=== PATIENT | male | born 2000 | race American Indian/Alaskan Native ===

== ENCOUNTER 2021-07-17 15:11 | Emergency (ER) | payer SELFPAY ==
--- NOTE | 2021-07-17 17:25 | Emergency Department Report ---
ED Eye Problem HPI - General Chief complaint: Eye Problems Stated complaint: POSS PINK EYE Time Seen by Provider: 07/17/21 17:01 Source: patient Mode of arrival: Ambulatory Limitations: No Limitations - History of Present Illness Initial comments: 21-year-old -Maltese male presents to the emergency room for right eye irritation. Patient states that it itches but does not have any pain no blurred vision no photophobia no eye injury. chief complaint: eye redness Onset/Timin -: days(s) Onset Description: awoke with symptoms Location: right eye If Injury: none Eye Symptoms: itching, discharge Severity scale (0 -10): 3 - Related Data Patient Tetanus UTD: Yes Previous Rx's Medication Instructions Recorded Last Taken Type Erythromycin [Erythromycin Ophth 1 strip OD QID 10 Days #1 tube 07/17/21 Unknown Rx Oint] Allergies Allergy/AdvReac Type Severity Reaction Status Date / Time No Known Allergies Allergy Verified 07/17/21 16:47 ED Review of Systems ROS: Stated complaint: POSS PINK EYE Other details as noted in HPI Comment: All other systems reviewed and negative ED Past Medical Hx - Past Medical History Hx Asthma: Yes - Surgical History Additional Surgical History: left elbow and tricep surgery - Medications Home Medications: Home Medications Medication Instructions Recorded Confirmed Last Taken Type Erythromycin [Erythromycin Ophth 1 strip OD QID 10 Days #1 tube 07/17/21 Unknown Rx Oint] ED Physical Exam - General Limitations: No Limitations General appearance: alert, in no apparent distress - Head Head exam: Present: atraumatic, normocephalic - Eye Eye exam: Present: PERRL, EOMI, conjunctival injection - ENT ENT exam: Present: mucous membranes moist - Neck Neck exam: Present: normal inspection, full ROM - Respiratory Respiratory exam: Present: normal lung sounds bilaterally. Absent: respiratory distress - Cardiovascular Cardiovascular Exam: Present: regular rate, normal rhythm. Absent: systolic murmur, diastolic murmur, rubs, gallop - Back Exam Back exam: Present: normal inspection, full ROM - Neurological Exam Neurological exam: Present: alert, oriented X3, normal gait - Psychiatric Psychiatric exam: Present: normal affect, normal mood - Skin Skin exam: Present: warm, dry, intact, normal color. Absent: rash ED Course Vital Signs 07/17/21 07/17/21 16:46 17:36 Temperature 97.4 F L 97.9 F Pulse Rate 83 78 Respiratory 16 16 Rate Blood Pressure 154/66 140/76 [Right] O2 Sat by Pulse 100 100 Oximetry ED Medical Decision Making - Medical Decision Making 21-year-old -Maltese male presents to the emergency room for right eye irritation. Patient states that it itches but does not have any pain no blurred vision no photophobia no eye injury. Patient be treated for conjunctivitis with erythromycin ophthalmic ointment to right eye 4 times daily for 10 days. Instructed to wash his before and after administration of medication. Critical care attestation.: If time is entered above; I have spent that time in minutes in the direct care of this critically ill patient, excluding procedure time. ED Disposition Clinical Impression: Conjunctivitis, right eye Disposition: 01 HOME / SELF CARE / HOMELESS Is pt being admited?: No Does the pt Need Aspirin: No Condition: Stable Additional Instructions: Please use ophthalmic antibiotic ointment to right eye. Prescriptions: Erythromycin [Erythromycin Ophth Oint] 1 strip OD QID 10 Days #1 tube Referrals: DARION MAX DO [Staff Physician] - 3-5 Days Forms: Work/School Release Form(ED) Time of Disposition: 17:24
[2021-07-17 17:37] VITALS: BP 140/76
== END 2021-07-17 17:45 | disposition home or self-care (01) ==
LOC: ED 15:11
DX: H10.9 Unspecified conjunctivitis (principal); J45.909 Unspecified asthma, uncomplicated
CPT/HCPCS: 99282

== ENCOUNTER 2021-07-22 15:18 | Emergency (ER) | payer SELFPAY ==
[2021-07-22 15:22] VITALS: BP 123/65
--- NOTE | 2021-07-22 15:38 | Emergency Department Report ---
Chief Complaint: Eye Problems Stated Complaint: PINK EYE Time Seen by Provider: 07/22/21 15:24 - HPI History of Present Illness: 21 year old male presents to the ER today requesting medical clearance to go back to work. Patient was seen here on July 17 for conjunctivitis in his right eye and he was prescribed erythromycin eye ointment. He was to use it 4 times a day for 10 days. He is patient states that he try to go back to work today, but he states that his boss needed him to get medically cleared to come back. Patient states that his symptoms have much improved since using the ointment. He reports no additional symptoms at this time. - Exam Vital Signs: Vital Signs 07/22/21 15:21 Temperature 98.7 F Pulse Rate 82 Respiratory 15 Rate Blood Pressure 123/65 O2 Sat by Pulse 99 Oximetry MSE screening note: Focused history and physical exam performed. Due to findings the following was ordered: ED Disposition for MSE Clinical Impression: Encounter for medical screening examination, Hx of acute conjunctivitis Disposition: HOME / SELF CARE / HOMELESS Is pt being admited?: No Does the pt Need Aspirin: No Condition: Stable Instructions: Medical Screening Exam Additional Instructions: You can return to work Sunday as scheduled but I do recommend that you continue to use the ointment for the next 3 days and then you can stop. Follow-up with your PCP as needed. Return to the ER if your symptoms changes or worsens in any way. Referrals: MARCELO ROJAS MD [Staff Physician] - as needed Forms: Work/School Release Form(ED) Time of Disposition: 15:40 Print Language: ROMANIAN ED Review of Systems ROS: Stated complaint: PINK EYE Other details as noted in HPI Comment: All other systems reviewed and negative Eyes: eye pain (improving ), eye discharge (improving), other (eye redness - improving ) Respiratory: denies: cough, shortness of breath, wheezing Cardiovascular: denies: chest pain, palpitations Genitourinary: denies: urgency, dysuria, frequency, hematuria, discharge, testicular pain, testicular mass Musculoskeletal: denies: back pain, joint swelling, arthralgia Skin: denies: rash, lesions, change in color, change in hair/nails, pruritus Neurological: denies: headache, weakness, numbness, paresthesias, confusion, abnormal gait, vertigo Psychiatric: denies: anxiety, depression Hematological/Lymphatic: denies: easy bleeding, easy bruising ED Physical Exam - General Limitations: No Limitations General appearance: alert, in no apparent distress - Head Head exam: Present: atraumatic, normocephalic, normal inspection - Eye Eye exam: Present: normal appearance, PERRL, EOMI Pupils: Present: normal accommodation - ENT ENT exam: Present: normal exam, mucous membranes moist, TM's normal bilaterally - Neck Neck exam: Present: normal inspection, full ROM - Respiratory Respiratory exam: Absent: respiratory distress - Cardiovascular Cardiovascular Exam: Present: regular rate - Neurological Exam Neurological exam: Present: alert, oriented X3, CN II-XII intact, normal gait - Psychiatric Psychiatric exam: Present: normal affect, normal mood - Skin Skin exam: Present: intact
== END 2021-07-22 15:47 | disposition home or self-care (01) ==
LOC: ED 15:18
DX: H10.9 Unspecified conjunctivitis (principal)
CPT/HCPCS: 99281

== ENCOUNTER 2021-12-24 16:57 | Emergency (ER) | payer SELFPAY ==
[2021-12-24 17:24] VITALS: BP 121/89
--- NOTE | 2021-12-24 18:25 | Emergency Department Report ---
ED Asthma HPI - General Chief Complaint: Adult Asthma Stated Complaint: ASTHMA Time Seen by Provider: 12/24/21 18:06 Source: patient Mode of arrival: Ambulatory Limitations: No Limitations - History of Present Illness Initial Comments: 21-year-old male with history of asthma presents to the hospital complaining of increased coughing and wheezing spells with chest tightness. Patient feels that the pollen is exacerbating his asthma. He does not currently have an inhaler. Patient currently denies shortness of breath - Related Data Previous Rx's Medication Instructions Recorded Last Taken Type Erythromycin [Erythromycin Ophth 1 strip OD QID 10 Days #1 tube 07/17/21 Unknown Rx Oint] Albuterol Sulfate [Proventil Hfa] 2 puff IH Q4HR PRN #1 inh 12/24/21 Unknown Rx Allergies Allergy/AdvReac Type Severity Reaction Status Date / Time No Known Allergies Allergy Verified 12/24/21 17:25 ED Review of Systems ROS: Stated complaint: ASTHMA Other details as noted in HPI Comment: All other systems reviewed and negative ED Past Medical Hx - Past Medical History Previous Medical History?: Yes Hx Asthma: Yes - Surgical History Past Surgical History?: Yes Additional Surgical History: left elbow and tricep surgery - Social History Smoking Status: Never Smoker Substance Use Type: None - Medications Home Medications: Home Medications Medication Instructions Recorded Confirmed Last Taken Type Erythromycin [Erythromycin Ophth 1 strip OD QID 10 Days #1 tube 07/17/21 12/24/21 Unknown Rx Oint] Albuterol Sulfate [Proventil Hfa] 2 puff IH Q4HR PRN #1 inh 12/24/21 Unknown Rx ED Physical Exam - General Limitations: No Limitations - Other Other exam information: General: No acute distress Head: Atraumatic Eyes: normal appearance ENT: Moist mucous membranes Neck: Normal appearance, no midline tenderness Chest: Clear to auscultation bilaterally CV: Regular rate and rhythm Abdomen: Soft, normal bowel sounds, nontender, nondistended, no rebound or guarding Back: Normal inspection Extremity: Normal inspection, full range of motion Neuro: Alert O x 3, no facial asymmetry, speech clear, no gross motor sensory deficit Psych: Appropriate behavior Skin: No rash ED Course Vital Signs 12/24/21 12/24/21 17:02 17:22 Temperature 98.4 F 97.9 F Pulse Rate 81 79 Respiratory 20 16 Rate Blood Pressure 135/92 Blood Pressure 121/89 [Right] O2 Sat by Pulse 100 97 Oximetry ED Medical Decision Making - Medical Decision Making 21-year-old male with history of asthma reports increased exacerbations and chest tightness. He does not currently have an inhaler and is requesting a refill. Patient does not require a breathing treatment in the ED Critical Care Time: No Critical care attestation.: If time is entered above; I have spent that time in minutes in the direct care of this critically ill patient, excluding procedure time. ED Disposition Clinical Impression: Asthma, Medication refill Disposition: HOME / SELF CARE / HOMELESS Is pt being admited?: No Does the pt Need Aspirin: No Condition: Stable Instructions: Asthma (ED), Asthma, Adult Additional Instructions: Take the medication as prescribed. Follow-up with your doctor or doctor/clinic provided. Return if symptoms worsen as indicated by your discharge instr uctions. Prescriptions: Albuterol Sulfate [Proventil Hfa] 2 puff IH Q4HR PRN #1 inh PRN Reason: Wheezing Referrals: [facility] [Provider Group] - 3-5 Days Time of Disposition: 18:23
== END 2021-12-24 18:36 | disposition home or self-care (01) ==
LOC: ED 16:57
DX: J45.909 Unspecified asthma, uncomplicated (principal); Z76.0 Encounter for issue of repeat prescription
CPT/HCPCS: 99282

== ENCOUNTER 2022-03-12 03:28 | Emergency (ER) | payer BC ==
[2022-03-12] MEDS ORDERED: methylPREDNISolone Sod Succinate 125 MG/2 ML INJ IM ONE (05:16)
[2022-03-12] MEDS ORDERED: ALBUTEROL 2.5 MG/3 ML NEBU IH ONE (05:17)
[2022-03-12] MEDS ORDERED: IPRATROPIUM 0.02% NEBU 2.5 ML IH ONE (05:17)
--- NOTE | 2022-03-12 06:08 | XRay Report ---
CHEST 1 VIEW 03/12/2022 5:29 AM INDICATION / CLINICAL INFORMATION: dyspnea, cough, asthma. COMPARISON: None available. FINDINGS: SUPPORT DEVICES: None. HEART / MEDIASTINUM: No significant abnormality. LUNGS / PLEURA: No significant pulmonary or pleural abnormality. No pneumothorax. ADDITIONAL FINDINGS: No significant additional findings. IMPRESSION: No acute abnormality. Signer Name: Prem Serrano MD Signed: 03/12/2022 6:03 AM Workstation Name: [id number]
--- NOTE | 2022-03-12 06:20 | Emergency Department Report ---
ED Shortness of Breath HPI - General Chief Complaint: Adult Asthma Stated Complaint: ASTHMA Source: patient Mode of arrival: Ambulatory Limitations: No Limitations - History of Present Illness Initial Comments: Patient is a 22-year-old -Bh[place] male with a history of asthma presents to the ED with complaint of acute onset persistent shortness of breath, nasal and sinus congestion for the last 1 week. Patient states that he ran out of his albuterol inhaler about a month ago and has not used any. Patient states that he does not have any primary care physician and therefore has not been able to get any prescriptions for his albuterol inhaler. Patient states that his symptoms got worse in the last 8 hours such that he has not been able to sleep because of chest tightness, persistent dry cough and wheezing. Patient denies chest pain, dizziness, syncope, fever, chills, nausea and vomiting, abdominal pain, sore throat, hemoptysis, headache, diarrhea, or ear pain. MD Complaint: shortness of breath, cough, chest pain (Chest tightness), "asthma attack" -: Gradual, week(s) (1) Severity: severe Pain Scale: 7 Quality: dull, other (Tightness) Consistency: intermittent Improves With: bronchodilators Worsens With: lying flat, coughing Known History Of: asthma Context: recent URI, allergen exposure Associated Symptoms: denies other symptoms, chest pain (Chest tightness), cough Treatments Prior to Arrival: none - Related Data Home Oxygen Therapy: No Previous Rx's Medication Instructions Recorded Last Taken Type Erythromycin [Erythromycin Ophth 1 strip OD QID 10 Days #1 tube 07/17/21 Unknown Rx Oint] Albuterol Sulfate [Proventil Hfa] 2 puff IH Q4HR PRN #1 inh 03/12/22 Unknown Rx Benzonatate [Tessalon Perles] 100 mg PO Q8HR #30 cap 03/12/22 Unknown Rx Cetirizine HCl [ZyrTEC 10mg cap] 10 mg PO DAILY #30 cap 03/12/22 Unknown Rx Montelukast [Singulair] 10 mg PO QPM #30 tablet 03/12/22 Unknown Rx methylPREDNISolone [Medrol 4MG 4 mg PO DAILY #21 tab 03/12/22 Unknown Rx DOSEPAK (21 tabs)] Allergies Allergy/AdvReac Type Severity Reaction Status Date / Time No Known Allergies Allergy Verified 03/12/22 04:11 ED Review of Systems ROS: Stated complaint: ASTHMA Other details as noted in HPI Constitutional: denies: chills, fever Eyes: denies: eye pain, eye discharge, vision change ENT: congestion. denies: ear pain, throat pain Respiratory: cough, shortness of breath, wheezing Cardiovascular: chest pain (Chest tightness). denies: palpitations Endocrine: no symptoms reported Gastrointestinal: denies: abdominal pain, nausea, vomiting, diarrhea Genitourinary: denies: urgency, dysuria Musculoskeletal: denies: back pain, joint swelling, arthralgia Skin: denies: rash, lesions Neurological: denies: headache, weakness, paresthesias Psychiatric: denies: anxiety, depression Hematological/Lymphatic: denies: easy bleeding, easy bruising ED Past Medical Hx - Past Medical History Hx Asthma: Yes - Surgical History Additional Surgical History: left elbow and tricep surgery - Social History Smoking Status: Current Some Day Smoker - Medications Home Medications: Home Medications Medication Instructions Recorded Confirmed Last Taken Type Erythromycin [Erythromycin Ophth 1 strip OD QID 10 Days #1 tube 07/17/21 12/24/21 Unknown Rx Oint] Albuterol Sulfate [Proventil Hfa] 2 puff IH Q4HR PRN #1 inh 03/12/22 Unknown Rx Benzonatate [Tessalon Perles] 100 mg PO Q8HR #30 cap 03/12/22 Unknown Rx Cetirizine HCl [ZyrTEC 10mg cap] 10 mg PO DAILY #30 cap 03/12/22 Unknown Rx Montelukast [Singulair] 10 mg PO QPM #30 tablet 03/12/22 Unknown Rx methylPREDNISolone [Medrol 4MG 4 mg PO DAILY #21 tab 03/12/22 Unknown Rx DOSEPAK (21 tabs)] ED Physical Exam - General Limitations: No Limitations General appearance: alert, in no apparent distress - Head Head exam: Present: atraumatic, normocephalic, normal inspection - Eye Eye exam: Present: normal appearance, PERRL, EOMI Pupils: Present: normal accommodation - ENT ENT exam: Present: normal orophraynx, mucous membranes moist, TM's normal bilaterally, normal external ear exam, other (Grossly congested nasal passages) - Neck Neck exam: Present: normal inspection, full ROM. Absent: tenderness - Respiratory Respiratory exam: Present: wheezes (Diffuse coarse wheezes throughout). Absent: normal lung sounds bilaterally, respiratory distress, rales, rhonchi, stridor, chest wall tenderness, accessory muscle use, prolonged expiratory - Cardiovascular Cardiovascular Exam: Present: regular rate, normal rhythm, normal heart sounds. Absent: systolic murmur, diastolic murmur, rubs, gallop - GI/Abdominal GI/Abdominal exam: Present: soft, normal bowel sounds. Absent: tenderness, guarding, rebound, hyperactive bowel sounds, hypoactive bowel sounds, organomegaly - Extremities Exam Extremities exam: Present: normal inspection, full ROM, normal capillary refill. Absent: tenderness, pedal edema, joint swelling, calf tenderness - Back Exam Back exam: Present: normal inspection, full ROM. Absent: tenderness, CVA tenderness (R), CVA tenderness (L), muscle spasm, paraspinal tenderness, vertebral tenderness - Neurological Exam Neurological exam: Present: alert, oriented X3, CN II-XII intact, normal gait, reflexes normal - Psychiatric Psychiatric exam: Present: normal affect, normal mood - Skin Skin exam: Present: warm, dry, intact, normal color. Absent: rash ED Course Vital Signs 03/12/22 04:07 Temperature 97.9 F Pulse Rate 78 Respiratory 18 Rate Blood Pressure 111/62 O2 Sat by Pulse 99 Oximetry ED Medical Decision Making - Radiology Data Radiology results: report reviewed, image reviewed [address] [address] XRay Report Signed Patient: CONNIE DEMPSEY MR#: [id number] : 2000 Acct:[id number] Age/Sex: 22 / M ADM Date: 03/12/22 Loc: ED Attending Dr: Ordering Physician: ZULMA EL Date of Service: 03/12/22 Procedure(s): XR chest 1V ap Accession Number(s): [id number] cc: ZULMA EL Fluoro Time In Minutes: CHEST 1 VIEW 03/12/2022 5:29 AM INDICATION / CLINICAL INFORMATION: dyspnea, cough, asthma. COMPARISON: None available. FINDINGS: SUPPORT DEVICES: None. HEART / MEDIASTINUM: No significant abnormality. LUNGS / PLEURA: No significant pulmonary or pleural abnormality. No pneumothorax. ADDITIONAL FINDINGS: No significant additional findings. IMPRESSION: No acute abnormality. Signer Name: Prem Serrano MD Signed: 03/12/2022 6:03 AM Workstation Name: [id number] Transcribed By: ES Dictated By: Prem Serrano MD Electronically Authenticated By: Prem Serrano MD Signed Date/Time: 03/12/22602 DD/ 2 TD/TT: - Medical Decision Making This is a 22-year-old -Bh[place] male with a history of asthma presents to the ED with complaint of acute onset persistent shortness of breath, nasal and sinus congestion for the last 1 week. Patient states that he ran out of his albuterol inhaler about a month ago and has not used any. Patient states that he does not have any primary care physician and therefore has not been able to get any prescriptions for his albuterol inhaler. Patient states that his symptoms got worse in the last 8 hours such that he has not been able to sleep because of chest tightness, persistent dry cough and wheezing. In the ED, patient is alert and oriented x3 and is not in any distress. Patient was treated in the ED with Solu-Medrol 125 mg intramuscular injection, also received DuoNeb treatment. Chest x-ray showed no acute cardiopulmonary abnormalities or pneumonitis. On reevaluation, patient wheezing and shortness of breath resolved with medication. Patient felt better and was discharged home on medications including albuterol inhaler prescription, Medrol Dosepak and cough medications. Patient was given a referral to local primary care physician Dr. Marcelo Yan for follow-up. Patient was otherwise advised return to the ED immediately if symptoms get worse. - Differential Diagnosis Asthma; bronchitis; pneumonia; URI; Critical care attestation.: If time is entered above; I have spent that time in minutes in the direct care of this critically ill patient, excluding procedure time. ED Disposition Clinical Impression: Acute bronchitis with asthma with acute exacerbation, Acute upper respiratory infection, Shortness of breath Disposition: 01 HOME / SELF CARE / HOMELESS Is pt being admited?: No Does the pt Need Aspirin: No Condition: Stable Instructions: Shortness of Breath, Adult, [id number], Upper Respiratory Infection, Adult, [id number], Cough, Adult, [id number], Acute Bronchitis, Adult, [id number]-[id number], Asthma, Adult, [id number] Additional Instructions: Chest x-ray showed no acute cardiopulmonary abnormalities or pneumonitis. Therefore take medication as advised, drink plenty of fluids, follow-up with your primary care physician in 7 to 10 days for reevaluation. Return to the ED immediately if symptoms get worse Prescriptions: methylPREDNISolone [Medrol 4MG DOSEPAK (21 tabs)] 4 mg PO DAILY #21 tab Albuterol Sulfate [Proventil Hfa] 2 puff IH Q4HR PRN #1 inh PRN Reason: Wheezing Montelukast [Singulair] 10 mg PO QPM #30 tablet Benzonatate [Tessalon Perles] 100 mg PO Q8HR #30 cap Cetirizine HCl [ZyrTEC 10mg cap] 10 mg PO DAILY #30 cap Referrals: MARCELO ROJAS MD [Primary Care Provider] - 3-5 Days Forms: Work/School Release Form(ED) Time of Disposition: 06:22 Print Language: ROMANSH
[2022-03-12 06:31] VITALS: BP 112/59
== END 2022-03-12 06:31 | disposition home or self-care (01) ==
LOC: ED 03:28
DX: J45.901 Unspecified asthma with (acute) exacerbation (principal); J06.9 Acute upper respiratory infection, unspecified; R06.02 Shortness of breath; Z98.890 Other specified postprocedural states; F17.290 Nicotine dependence, other tobacco product, uncomplicated
CPT/HCPCS: 71045; 94640; 96372; 99283; J2930